=== PATIENT | female | born 1965 | race Caucasian/White ===

== ENCOUNTER 2018-11-04 09:31 | Emergency (ER) | payer OTHER ==
[~2018-11-04] VITALS: Ht 170.2 cm; Wt 65.0 kg
[2018-11-04] MEDS ORDERED: PROCHLORPERAZINE 10 MG INJ IV STA (09:37)
[2018-11-04] MEDS ORDERED: KETOROLAC 30 MG INJ IV STA (09:37)
[2018-11-04] MEDS ORDERED: SOD CHLORIDE 0.9% 1,000 ML IV STA (09:37)
[2018-11-04] MEDS ORDERED: DIPHENHYDRAMINE 50 MG INJ IV STA (09:37)
--- NOTE | 2018-11-04 09:40 | ERD ---
ER Documentation Chief Complaint Chief Complaint Headache and body aches since yesterday HPI 53-year-old female who has remote history of migraine headaches presents the emergency room with approximately 24 hours of symptoms. She describes headache that started yesterday as bitemporal, gradual onset but more severe today. The patient states associated nausea and vomiting, myalgias and body aches. Patient denies any fevers or chills, no rash, no neck stiffness. Her headache is similar to migraine headaches in the past but she has not had a headache and some time. The patient denies any chest pain cough or shortness of breath, no abdominal pain, no diarrhea or constipation. ROS All systems reviewed and are negative except as per history of present illness. Medications Home Meds Active Scripts Gsmbhayqpr-Rpsrphvn[facility]-Hruksole* (Fioricet*) 50-300-40 Mg Capsule, 1 CAP PO TID PRN for HEADACHE, #20 CAP Prov:LAISHA AMEZCUA MD 11/04/18 FmHx Family History: No diabetes Physical Exam Vitals Vital Signs Date Temp Pulse Resp B/P (MAP) Pulse Ox O2 O2 Flow FiO2 Time Delivery Rate 11/04/18 99.6 91 18 135/86 100 09:41 (102) Physical Exam General: Well developed, well nourished, no acute distress Head: Normocephalic, atraumatic. Eyes: Pupils equally reactive, EOM intact ENT: Moist mucous membranes Neck: Supple, no lymphadenopathy Respiratory: Lungs clear bilaterally, no distress Cardiovascular: RRR, no murmurs, rubs, or gallops Abdominal: Soft, non-tender, non-distended, no peritoneal signs : Deferred MSK: No edema, no unilateral swelling, 5/5 strength Neurologic: Alert and oriented, moving all extremities, normal speech, no focal weakness, no cerebellar signs, no meningismus Skin: No rash Psych: Normal mood Results 24 hrs Current Medications Medications Dose Sig/Ina Start Time Status Last (Trade) Ordered Route PRN Stop Time Admin Dose Reason Admin Sodium 1,000 ml @ Q1H STAT 11/04/18 DC 11/04/18 Chloride 1,000 mls/hr IV 09:37 11/04/18 09:50 10:36 10 mg ONCE STAT 11/04/18 DC 11/04/18 Prochlorperaz IV 09:37 11/04/18 09:50 ine 09:38 (Compazine Inj) Ketorolac 30 mg ONCE STAT 11/04/18 DC 11/04/18 Tromethamine IV 09:37 11/04/18 09:51 (Toradol) 09:38 25 mg ONCE STAT 11/04/18 DC 11/04/18 Diphenhydrami IV 09:37 11/04/18 09:51 ne HCl 09:38 (Benadryl) Procedures/MDM MEDICAL DECISION MAKING: The patient's headache is unlikely related to serious etiology. The patient does not exhibit any clinical signs or symptoms, and has no risk factors to suggest headache etiology such as subarachnoid hemorrhage, acute vertebral or carotid dissection, intracranial mass, epidural, subdural hematoma, dural venous sinus thrombosis, giant cell arteritis, or pseudotumor cerebri. Given her description I believe she likely has a viral process exacerbating a chronic migraine syndrome. The patient exhibits no signs or symptoms concerning for increased intracranial pressure. The patient has no red flags that would warrant CT imaging or laboratory testing at this time. The patient will benefit from symptom control, fluid resuscitation. ER COURSE: * IV fluids, Compazine, Benadryl, Toradol provided with dramatic improvement and resolution of her headache. The patient is safe for discharge. CONSULTATION: None DISPOSITION PLAN: The patient does not have an identifiable emergent medical condition that warrants inpatient hospitalization at this time. The patient is deemed safe for discharge with outpatient follow-up. We discussed follow up with the patient's primary care doctor within 24 to 48 hours as needed. We also discussed return to the emergency room for worsening symptoms or worsening condition. Outpatient referral: None required Discharge Medications: Fioricet Departure Diagnosis: Primary Impression: Migraine headache Migraine type: unspecified Status migrainosus presence: without status migrainosus Intractability: not intractable Qualified Codes: G43.909 - Migraine, unspecified, not intractable, without status migrainosus Additional Impression: Myalgia Condition: Stable LAISHA AMEZCUA MD Nov 04, 2018 09:40
[2018-11-04 09:41] VITALS: Ht 170.2 cm; Wt 65.0 kg
[2018-11-04] MEDS ORDERED: BUTA1CAP38 PO (10:56)
[2018-11-04 11:20] VITALS: BP 132/86; PULSE 72; RESP 16
[2018-11-04] MEDS ORDERED: CHOL200056 PO (11:22)
== END 2018-11-04 11:20 | disposition home or self-care (01) ==
LOC: E/R 09:31
DX: G43.909 Migraine, unspecified, not intractable, without status migrainosus (principal); M79.10 Myalgia, unspecified site
CPT/HCPCS: 96374; 96375; J0780; J1200; J1885; J7030; Z7502